=== PATIENT | female | born 1970 | race American Indian/Alaskan Native ===

== ENCOUNTER 2020-07-20 14:21 | Observation (INO) | payer MEDICAID, OTHER ==
--- NOTE | 2020-07-20 16:26 | Event Note ---
ED Screening Note Date of service: 07/20/20 Time: 16:22 ED Screening Note: 50-year-old -[place] female presents to the emergency room complaining of nausea and vomiting x2 days. She also reports that she ran out of her diabetic medication. Her blood sugar in triage is 423. This initial assessment/diagnostic orders/clinical plan/treatment(s) is/are subject to change based on patients health status, clinical progression and re- assessment by fellow clinical providers in the ED. Further treatment and workup at subsequent clinical providers discretion. Patient/guardian urged not to elope from the ED as their condition may be serious if not clinically assessed and managed. Initial orders include:
[2020-07-20 17:06] LABS: Basophils % (Auto) 0.4 % (0.0-1.8); Eosinophils % (Auto) 0.1 % (0.0-4.3); Hematocrit 46.4 % (30.3-42.9); Lymphocytes # (Auto) 1.7 K/mm3 (1.2-5.4); Lymphocytes % (Auto) 13.9 % (13.4-35.0); Mean Corpuscular HGB Conc 32 % (30-34); Mean Corpuscular Volume 82 fl (79-97); Monocytes # (Auto) 0.5 K/mm3 (0.0-0.8); Monocytes % (Auto) 4.1 % (0.0-7.3); Platelet Count 334 K/mm3 (140-440); Red Blood Count 5.64 M/mm3 (3.65-5.03)
[2020-07-20 17:09] LABS: Alanine Aminotransferase 14 units/L (7-56); Albumin 4.9 g/dL (3.9-5); BUN/Creatinine Ratio 17; Blood Urea Nitrogen 15 mg/dL (7-17); Calcium 10.8 mg/dL (8.4-10.2); Hemolysis Index 12
[2020-07-20 18:05] LABS: Bilirubin,Urine NEG (Negative); Blood,Urine MOD (Negative); Color,Urine Straw (Yellow); Protein,Urine <15 mg/dL mg/dL (Negative); Urobilinogen,Urine < 2.0 mg/dL (<2.0)
[2020-07-20] MEDS ORDERED: FAMOTIDINE 20 MG/2 ML INJ IV ONE (23:27)
[2020-07-20] MEDS ORDERED: SODIUM CHLORIDE 0.9% 1000 ML 2,000 ML IV ONE (23:27)
[2020-07-20] MEDS ORDERED: ONDANSETRON 4 MG/2 ML INJ IV ONE (23:27)
[2020-07-20] MEDS ORDERED: INSULIN REGULAR, HUMAN 100 UNIT/ML 3ML VIAL IV ONE (23:28)
--- NOTE | 2020-07-20 23:31 | Emergency Department Report ---
ED General Adult HPI - General Chief complaint: Nausea/Vomiting/Diarrhea Stated complaint: STOMACH PAIN PUI?: No Time Seen by Provider: 07/20/20 23:19 Source: patient, RN notes reviewed Mode of arrival: Ambulatory Limitations: No Limitations - History of Present Illness Initial comments: The patient was evaluated in the emergency department for symptoms described in the history of present illness. He/she was evaluated in the context of the global COVID-19 pandemic, which necessitated consideration that the patient might be at risk for infection with the virus that causes COVID-19. Institutional protocols and algorithms that pertain to the evaluation of patients at risk for COVID-19 are in a state of rapid change based on information released by regulatory bodies including the CDC and federal and state organizations. These policies and algorithms were followed during the patient's care in the emergency department. Please note that these policies, procedures and recommendations changed on a rapid basis. During the history and physical examination, I am chaperoned by nurse Bonilla Lazar Patient is a 50-year-old female. She is not known to myself previously. She arrived in the [facility] 3 days ago, from [place]. She has a history of diabetes, hypertension, and endometriosis, status post partial hysterectomy last year. She presents to the ER with a complaint of lower abdominal pain and cramping, distention, nausea and vomiting, not defecating for 24 hours, hyperglycemia, and running out of her medication, Metformin, 1000 mg twice daily. She thinks her last hemoglobin A1c was approximately 6. She does not have a gastroparesis diagnosis that she is aware of. She denies headache, neck pain, chest pain, shortness of breath, dysuria, body aches, and she denies loss of taste, loss of smell, cough and shortness of breath. She states that she is very thirsty, and "drinking a lot of soda." She also reports that she needs her Metformin medication refilled. -: Gradual, days(s) Location: abdomen Radiation: non-radiation Quality: other (Cramping) Consistency: intermittent Improves with: none Worsens with: none - Related Data Allergies Allergy/AdvReac Type Severity Reaction Status Date / Time No Known Allergies Allergy Unverified 07/20/20 16:23 ED Review of Systems ROS: Stated complaint: STOMACH PAIN Other details as noted in HPI Constitutional: denies: fever, malaise Eyes: denies: eye discharge ENT: denies: epistaxis Respiratory: denies: cough Cardiovascular: denies: chest pain Gastrointestinal: abdominal pain, nausea, vomiting. denies: hematemesis, melena, hematochezia Genitourinary: denies: dysuria Neurological: denies: weakness Hematological/Lymphatic: denies: easy bleeding ED Past Medical Hx - Past Medical History Previous Medical History?: Yes Hx Hypertension: Yes Hx Diabetes: Yes Hx of Cancer: Yes (endometriosis) - Surgical History Past Surgical History?: Yes - Social History Smoking Status: Current Every Day Smoker Substance Use Type: Alcohol ED Physical Exam - General Limitations: No Limitations General appearance: alert, in no apparent distress - Head Head exam: Present: atraumatic, normocephalic - Eye Eye exam: Present: normal appearance, EOMI. Absent: nystagmus - ENT ENT exam: Present: normal exam, normal orophraynx, mucous membranes moist, normal external ear exam - Neck Neck exam: Present: normal inspection, full ROM. Absent: tenderness, meningismus - Respiratory Respiratory exam: Present: normal lung sounds bilaterally. Absent: respiratory distress, wheezes, rales, rhonchi, stridor, decreased breath sounds - Cardiovascular Cardiovascular Exam: Present: regular rate, normal rhythm, normal heart sounds. Absent: bradycardia, tachycardia, irregular rhythm, systolic murmur, diastolic murmur, rubs, gallop - GI/Abdominal GI/Abdominal exam: Present: soft, tenderness (There is minimal bilateral lower quadrant abdominal tenderness, without rebound, guarding or peritoneal signs), normal bowel sounds. Absent: distended, guarding, rebound, rigid, pulsatile mass - Extremities Exam Extremities exam: Present: normal inspection, full ROM, other (2+ pulses noted in the bilateral upper and lower extremities. There is no palpable cord. negative Homans sign. Muscular compartments are soft. The pelvis is stable.). Absent: pedal edema, calf tenderness - Back Exam Back exam: Present: normal inspection. Absent: tenderness, CVA tenderness (R), CVA tenderness (L), paraspinal tenderness, vertebral tenderness - Neurological Exam Neurological exam: Present: alert, oriented X3, normal gait, other (No facial droop. Tongue midline. Extraocular movements intact bilaterally. Facial sensation intact to light touch in V1, V2, V3 distribution bilaterally. 5 and a 5 strength in 4 extremities. Sensation intact to light touch in 4 ex tremities.). Absent: motor sensory deficit - Psychiatric Psychiatric exam: Present: normal affect, normal mood - Skin Skin exam: Present: warm, dry, intact, normal color. Absent: rash ED Course Vital Signs 07/20/20 15:22 Temperature 98.4 F Pulse Rate 107 H Respiratory 16 Rate Blood Pressure 152/95 O2 Sat by Pulse 97 Oximetry - Reevaluation(s) Reevaluation #1: 07/20/20 23:35 Differential diagnosis, including but not limited to: Colitis, diverticulitis, obstruction, gastroparesis Assessment and plan: 50-year-old female, who was afebrile, with reassuring vital signs and has resolved tachycardia, with hyperglycemia, lower abdominal pain, distention, no bowel movement for over 24 hours, history of partial hysterectomy, and report of nausea and vomiting. Place patient on monitor and storage bin tender. Start IV fluids, pain medication, nausea medication, insulin therapy. Obtain EKG, CT scan of the abdomen pelvis. Discussed this plan of care with the patient, who verbalized understanding, and who is amenable to this plan of care. Reassess after initial data points. Repeat basic metabolic panel after initial IV fluid resuscitation to assess for changes of metabolic derangements. Pyuria is appreciated. Patient does not endorse any irritative or obstructive urinary symptoms. She may follow-up with an outpatient primary care doctor for this. 07/20/20 23:37 07/21/20 00:58 CT scan suggest small bowel obstruction. We will withhold Kayexalate as this medication may cause colonic perforation and concretions. Patient given IV fluids and insulin, which may assist with mild hyperkalemia. N.p.o. status is ordered. No active vomiting at this time. Will discuss with general surgery. We anticipate admission to the medical service. We will update the patient on her plan of care Reevaluation #2: 07/21/20 01:08 Discussed with general surgery on-call, Dr. Pina. Her group will follow in consultation. I discussed the patient's diagnosis with the patient. She is amenable to admission/hospitalization. N.p.o. status, nasogastric tube ordered/recommended by general surgery. Appropriate medications ordered. Hospital physician, Dr. Yordan Oropeza to admit - Consultations Consultation #1: 07/21/20 01:07 I discussed the patient's history, physical, pertinent laboratory studies and imaging findings with general surgery on-call, Dr. Pina. She will follow in consultation. Recommends nasogastric tube, supportive care, nothing by mouth at this time. ED Medical Decision Making - Lab Data Result diagrams: 07/20/20 16:33 07/20/20 16:33 Vital Signs 07/20/20 15:22 Temperature 98.4 F Pulse Rate 107 H Respiratory 16 Rate Blood Pressure 152/95 O2 Sat by Pulse 97 Oximetry Lab Results 07/20/20 07/20/20 07/20/20 Range/Units 15:24 16:33 16:33 WBC 12.3 H (4.5-11.0) K/mm3 RBC 5.64 H (3.65-5.03) M/mm3 Hgb 15.0 H (10.1-14.3) gm/dl Hct 46.4 H (30.3-42.9) % MCV 82 (79-97) fl MCH 27 L (28-32) pg MCHC 32 (30-34) % RDW 14.0 (13.2-15.2) % Plt Count 334 (140-440) K/mm3 Lymph % (Auto) 13.9 (13.4-35.0) % Nelson % (Auto) 4.1 (0.0-7.3) % Eos % (Auto) 0.1 (0.0-4.3) % Baso % (Auto) 0.4 (0.0-1.8) % Lymph # (Auto) 1.7 (1.2-5.4) K/mm3 Nelson # (Auto) 0.5 (0.0-0.8) K/mm3 Eos # (Auto) 0.0 (0.0-0.4) K/mm3 Baso # (Auto) 0.0 (0.0-0.1) K/mm3 Seg Neutrophils % 81.5 H (40.0-70.0) % Seg Neutrophils # 10.0 H (1.8-7.7) K/mm3 VBG pH (7.320-7.420) Sodium 138 (137-145) mmol/L Potassium 5.7 H (3.6-5.0) mmol/L Chloride 97.4 L (98-107) mmol/L Carbon Dioxide 23 (22-30) mmol/L Anion Gap 23 mmol/L BUN 15 (7-17) mg/dL Creatinine 0.9 (0.6-1.2) mg/dL Estimated GFR > 60 ml/min BUN/Creatinine Ratio 17 % Glucose 439 H (65-100) mg/dL POC Glucose 423 H (70-105) mg/dL Calcium 10.8 H (8.4-10.2) mg/dL Total Bilirubin 0.60 (0.1-1.2) mg/dL AST 11 (5-40) units/L ALT 14 (7-56) units/L Alkaline Phosphatase 129 (35-129) units/L Total Protein 8.5 H (6.3-8.2) g/dL Albumin 4.9 (3.9-5) g/dL Albumin/Globulin Ratio 1.4 % Lipase 27 (13-60) units/L Urine Color (Yellow) Urine Turbidity (Clear) Urine pH (5.0-7.0) Ur Specific [place] (1.003-1.030) Urine Protein (Negative) mg/dL Urine Glucose (UA) (Negative) mg/dL Urine Ketones (Negative) mg/dL Urine Blood (Negative) Urine Nitrite (Negative) Urine Bilirubin (Negative) Urine Urobilinogen (<2.0) mg/dL Ur Leukocyte Esterase (Negative) Urine WBC (Auto) (0.0-6.0) /HPF Urine RBC (Auto) (0.0-6.0) /HPF U Epithel Cells (Auto) (0-13.0) /HPF 07/20/20 07/20/20 07/20/20 Range/Units 16:33 17:25 21:54 WBC (4.5-11.0) K/mm3 RBC (3.65-5.03) M/mm3 Hgb (10.1-14.3) gm/dl Hct (30.3-42.9) % MCV (79-97) fl MCH (28-32) pg MCHC (30-34) % RDW (13.2-15.2) % Plt Count (140-440) K/mm3 Lymph % (Auto) (13.4-35.0) % Nelson % (Auto) (0.0-7.3) % Eos % (Auto) (0.0-4.3) % Baso % (Auto) (0.0-1.8) % Lymph # (Auto) (1.2-5.4) K/mm3 Nelson # (Auto) (0.0-0.8) K/mm3 Eos # (Auto) (0.0-0.4) K/mm3 Baso # (Auto) (0.0-0.1) K/mm3 Seg Neutrophils % (40.0-70.0) % Seg Neutrophils # (1.8-7.7) K/mm3 VBG pH 7.369 (7.320-7.420) Sodium (137-145) mmol/L Potassium (3.6-5.0) mmol/L Chloride (98-107) mmol/L Carbon Dioxide (22-30) mmol/L Anion Gap mmol/L BUN (7-17) mg/dL Creatinine (0.6-1.2) mg/dL Estimated GFR ml/min BUN/Creatinine Ratio % Glucose (65-100) mg/dL POC Glucose 378 H (70-105) mg/dL Calcium (8.4-10.2) mg/dL Total Bilirubin (0.1-1.2) mg/dL AST (5-40) units/L ALT (7-56) units/L Alkaline Phosphatase (35-129) units/L Total Protein (6.3-8.2) g/dL Albumin (3.9-5) g/dL Albumin/Globulin Ratio % Lipase (13-60) units/L Urine Color Straw (Yellow) Urine Turbidity Clear (Clear) Urine pH 5.0 (5.0-7.0) Ur Specific [place] 1.030 (1.003-1.030) Urine Protein <15 mg/dl (Negative) mg/dL Urine Glucose (UA) >=500 (Negative) mg/dL Urine Ketones 20 (Negative) mg/dL Urine Blood Mod (Negative) Urine Nitrite Neg (Negative) Urine Bilirubin Neg (Negative) Urine Urobilinogen < 2.0 (<2.0) mg/dL Ur Leukocyte Esterase Neg (Negative) Urine WBC (Auto) 7.0 H (0.0-6.0) /HPF Urine RBC (Auto) 4.0 (0.0-6.0) /HPF U Epithel Cells (Auto) 1.0 (0-13.0) /HPF - EKG Data -: EKG Interpreted by Ri EKG shows normal: sinus rhythm Rate: normal - EKG Data When compared to previous EKG there are: previous EKG unavailable 07/21/20 00:51 Sinus rhythm, 97 bpm, normal axis, QTC 442 ms, left ventricular hypertrophy, p oor R wave progression, and atrial enlargement. The EKG is abnormal. The EKG is not a STEMI. - Radiology Data Radiology results: pending, report reviewed, image reviewed CT ABDOMEN AND PELVIS WITH IV CONTRAST INDICATION: Lower abdominal pain nausea and vomiting TECHNIQUE: Following the administration of intravenous contrast, multiple axial CT images of the abdomen and pelvis were acquired. Sagittal and coronal reformats were obtained. All CT performed at this facility utilize dose reduction techniques including automated exposure control, iterative r econstruction and weight based dosing when appropriate to reduce patient radiation dose to as low as reasonably achievable. COMPARISON: None FINDINGS: Limited imaging of the bilateral lung bases demonstrates no acute abnormality. ABDOMEN: The liver, gallbladder, spleen, stomach, pancreas, bilateral adrenal glands and bilateral kidneys show no evidence of acute abnormality. There are multiple loops of dilated mid and distal small bowel with a transition point in the mid abdomen. No pneumatosis or free air is visualized. A normal appendix is unable to be identified. PELVIS: The urinary bladder appears normal. No free pelvic fluid is seen. There is a circumscribed 1.8 x 2.3 cm fluid collection within the right pelvis which may represent an adnexal cyst. BONES AND SOFT TISSUES: No acute bony abnormality is visualized. Soft tissue structures appear grossly normal. IMPRESSION: 1. Several loops of dilated mid and distal small bowel with the terminal ileum decompressed. Findings are most compatible with small bowel obstruction. The cause for the obstruction is not clearly visualized on today's study. 2. Please note that a normal appendix is not identified on today's study. 3. Small circumscribed fluid collection in the right pelvis that may represent an adnexal cyst. Signer Name: Mary Dobbins MD Signed: 07/20/2020 11:52 PM Workstation Name: [id number] Critical care attestation.: If time is entered above; I have spent that time in minutes in the direct care of this critically ill patient, excluding procedure time. ED Disposition Clinical Impression: Hyperglycemia, Lower abdominal pain, History of nausea and vomiting, Dehydration, Pyuria, Hyperkalemia, Small bowel obstruction Disposition: DC-09 OP ADMIT IP TO THIS HOSP Is pt being admited?: Yes Does the pt Need Aspirin: No Condition: Good Referrals: JAQUAN LAKHANI [Other] - 3-5 Days
--- NOTE | 2020-07-21 00:56 | Cat Scan Report ---
CT ABDOMEN AND PELVIS WITH IV CONTRAST INDICATION: Lower abdominal pain nausea and vomiting TECHNIQUE: Following the administration of intravenous contrast, multiple axial CT images of the abdo men and pelvis were acquired. Sagittal and coronal reformats were obtained. All CT performed at this facility utilize dose reduction techniques including automated exposure control, iterative reconstru ction and weight based dosing when appropriate to reduce patient radiation dose to as low as reasonab ly achievable. COMPARISON: None FINDINGS: Limited imaging of the bilateral lung bases demonstrates no acute abnormality. ABDOMEN: The liver, gallbladder, spleen, stomach, pancreas, bilateral adrenal glands and bilateral kidneys kim w no evidence of acute abnormality. There are multiple loops of dilated mid and distal small bowel with a transition point in the mid abd omen. No pneumatosis or free air is visualized. A normal appendix is unable to be identified. PELVIS: The urinary bladder appears normal. No free pelvic fluid is seen. There is a circumscribed 1.8 x 2.3 cm fluid collection within the right pelvis which may represent an adnexal cyst. BONES AND SOFT TISSUES: No acute bony abnormality is visualized. Soft tissue structures appear grossl y normal. IMPRESSION: 1. Several loops of dilated mid and distal small bowel with the terminal ileum decompressed. Findings are most compatible with small bowel obstruction. The cause for the obstruction is not clearly visua lized on today's study. 2. Please note that a normal appendix is not identified on today's study. 3. Small circumscribed fluid collection in the right pelvis that may represent an adnexal cyst. Signer Name: Mary Dobbins MD Signed: 07/21/2020 12:52 AM Workstation Name: [id number]
[2020-07-21] MEDS ORDERED: INSULIN REGULAR, HUMAN 100 UNITS/1 ML ONE (01:00)
[2020-07-21] MEDS ORDERED: MORPHINE 4 MG/1 ML INJ IV ONE (01:05)
[2020-07-21] MEDS ORDERED: LIDOCAINE VISCOUS 2% 15 ML ORAL LIQD PO ONE (01:06)
[2020-07-21] MEDS ORDERED: ONDANSETRON 4 MG/2 ML INJ IV PRN (01:40)
[2020-07-21] MEDS ORDERED: ACETAMINOPHEN 325 MG TAB PO PRN (01:40)
[2020-07-21] MEDS ORDERED: DEXTROSE 50% IN WATER (25GM) 50 ML SYRINGE IV PRN (01:40)
[2020-07-21] MEDS ORDERED: SODIUM CHLORIDE 0.9% 1000 ML 1,000 ML IV SCH (01:45)
--- NOTE | 2020-07-21 02:05 | History and Physical Report ---
History of Present Illness Date of examination: 07/21/20 Date of admission: 07/20/2020 Chief complaint: Abdominal pain Nausea and Vomiting History of present illness: 50-year-old female with known history of hypertension, diabetes mellitus currently visiting [place] from [place] presenting to the emergency room today complaining of abdominal pain, nausea and vomiting which has been ongoing for the past few days. Abdominal pain is said to be crampy, no known relieving or exacerbating factor. Pain is also said to be radiating towards the back. She denies any diarrhea, no constipation, no bright red blood per rectum, no coffee-ground emesis. Patient denies any fever or chills, no chest pain or shortness of breath, no headache or dizziness, no hematuria or dysuria. Patient has been feeling thirsty and been drinking lots of soda. She also indicates that her blood sugar has been elevated and she been running out of Metformin. Work-up in the emergency room today including CT scan of the abdomen and pelvis is suggestive of small bowel obstruction. Labs were significant for hyperglycemia, hyperkalemia and dehydration. General surgeon Dr. Pina has been consulted by the ER physician for evaluation. Past History Past Medical History: diabetes, hypertension, other (History of endometriosis) Past Surgical History: hysterectomy Social history: smoking (Current daily smoker), alcohol abuse Family history: no significant family history Medications and Allergies Allergies Allergy/AdvReac Type Severity Reaction Status Date / Time No Known Allergies Allergy Unverified 07/20/20 16:23 Active Meds: Active Medications Acetaminophen (Acetaminophen 325 Mg Tab) 650 mg PO Q4H PRN PRN Reason: Pain MILD(1-3)/Fever >100.5/SCHULTZ Dextrose (Dextrose 50% In Water (25gm) 50 Ml Syringe) 50 ml IV Q30MIN PRN; Protocol PRN Reason: Hypoglycemia Sodium Chloride (Nacl 0.9% 1000 Ml) 1,000 mls @ 125 mls/hr IV DIRECT MARICLE Insulin Human Lispro (Insulin Lispro 100 Unit/Ml Vial 3 Ml) 0 unit SUB-Q ACHS MARICEL; Protocol Morphine Sulfate (Morphine 2 Mg/1 Ml Inj) 2 mg IV Q4H PRN PRN Reason: Pain, Moderate (4-6) Ondansetron HCl (Ondansetron 4 Mg/2 Ml Inj) 4 mg IV Q8H PRN PRN Reason: Nausea And Vomiting Sodium Chloride (Sodium Chloride 0.9% 10 Ml Flush Syringe) 10 ml IV BID MARICEL Sodium Chloride (Sodium Chloride 0.9% 10 Ml Flush Syringe) 10 ml IV PRN PRN PRN Reason: LINE FLUSH Review of Systems Constitutional: no fever, no chills Ears, nose, mouth and throat: no nasal congestion, no sore throat Cardiovascular: no chest pain, no palpitations Respiratory: no cough, no shortness of breath Gastrointestinal: abdominal pain, nausea, vomiting, no diarrhea, no constipation, no coffee ground emesis, no BRBPR, no melena Genitourinary Female: no flank pain, no dysuria, no hematuria Musculoskeletal: no neck pain, no low back pain Integumentary: no rash, no pruritis Neurological: no headaches, no confusion Psychiatric: no anxiety, no depression Exam - Constitutional Vitals: Temp Pulse Resp BP Pulse Ox 98.4 F 107 H 16 152/95 97 07/20/20 15:22 07/20/20 15:22 07/20/20 15:22 07/20/20 15:22 07/20/20 15:22 General appearance: Present: no acute distress, well-nourished - EENT Eyes: Present: PERRL, EOM intact. Absent: scleral icterus ENT: hearing intact, clear oral mucosa, dentition normal - Neck Neck: Present: supple, normal ROM - Respiratory Respiratory effort: normal Respiratory: bilateral: CTA - Cardiovascular Rhythm: regular Heart Sounds: Present: S1 & S2. Absent: gallop, systolic murmur, diastolic murmur, rub - Extremities Extremities: no ischemia, pulses intact, pulses symmetrical, No edema, Full ROM Peripheral Pulses: within normal limits - Abdominal General gastrointestinal: Present: soft, tender (Lower quadrants bilaterally), non-distended, normal bowel sounds, other (Old scar of surgery in midline.). Absent: mass - Integumentary Integumentary: Present: clear, warm, dry. Absent: rash - Musculoskeletal Musculoskeletal: strength equal bilaterally - Psychiatric Psychiatric: appropriate mood/affect, intact judgment & insight, memory intact, cooperative - Neurologic Neurologic: CNII-XII intact, no focal deficits, moves all extremities Results - Labs CBC & Chem 7: 07/20/20 16:33 07/20/20 16:33 Labs: Abnormal lab results 07/20/20 07/20/20 07/20/20 Range/Units 15:24 16:33 16:33 WBC 12.3 H (4.5-11.0) K/mm3 RBC 5.64 H (3.65-5.03) M/mm3 Hgb 15.0 H (10.1-14.3) gm/dl Hct 46.4 H (30.3-42.9) % MCH 27 L (28-32) pg Seg Neutrophils % 81.5 H (40.0-70.0) % Seg Neutrophils # 10.0 H (1.8-7.7) K/mm3 Potassium 5.7 H (3.6-5.0) mmol/L Chloride 97.4 L (98-107) mmol/L Glucose 439 H (65-100) mg/dL POC Glucose 423 H (70-105) mg/dL Calcium 10.8 H (8.4-10.2) mg/dL Total Protein 8.5 H (6.3-8.2) g/dL Urine WBC (Auto) (0.0-6.0) /HPF 07/20/20 07/20/20 07/21/20 Range/Units 17:25 21:54 01:27 WBC (4.5-11.0) K/mm3 RBC (3.65-5.03) M/mm3 Hgb (10.1-14.3) gm/dl Hct (30.3-42.9) % MCH (28-32) pg Seg Neutrophils % (40.0-70.0) % Seg Neutrophils # (1.8-7.7) K/mm3 Potassium (3.6-5.0) mmol/L Chloride (98-107) mmol/L Glucose (65-100) mg/dL POC Glucose 378 H 291 H (70-105) mg/dL Calcium (8.4-10.2) mg/dL Total Protein (6.3-8.2) g/dL Urine WBC (Auto) 7.0 H (0.0-6.0) /HPF Assessment and Plan - Patient Problems (1) Small bowel obstruction Current Visit: Yes Status: Acute Plan to address problem: Patient has been placed n.p.o. NG tube has been recommended. Consult has been placed to general surgeon Dr. Yovani. (2) Lower abdominal pain Current Visit: Yes Status: Acute Plan to address problem: Possibly secondary to the small bowel obstruction. We will continue with IV analgesic medication as needed. (3) Dehydration Current Visit: Yes Status: Acute Plan to address problem: Possibly from the nausea and vomiting. Will place patient on IV fluid and wilberto tor chemistry. (4) Hyperglycemia Current Visit: Yes Status: Acute Plan to address problem: We will monitor Accu-Cheks closely. (5) Hyperkalemia Current Visit: Yes Status: Acute Plan to address problem: Patient has had insulin and IV fluid. Will monitor potassium level. (6) DVT prophylaxis Current Visit: Yes Status: Acute Plan to address problem: Patient placed on sequential compression device. (7) Full code status Current Visit: Yes Status: Acute
[2020-07-21 04:23] LABS: Blood Urea Nitrogen 16 mg/dL (7-17); Calcium 9.5 mg/dL (8.4-10.2); Hemolysis Index 45
[2020-07-21 04:40] LABS: BUN/Creatinine Ratio 23
[2020-07-21] MEDS: MORPHINE 2 MG/1 ML INJ IV PRN ×2 (05:33→11:17)
[2020-07-21] MEDS: INSULIN LISPRO 100 UNIT/ML VIAL 3 mL SUB-Q SCH ×2 (07:22→11:22)
--- NOTE | 2020-07-21 09:59 | Consultation ---
History of Present Illness Consult date: 07/21/20 Reason for consult: abdominal pain - History of present illness History of present illness: 50 year old female presented to ED with about a 4 day hx of worsening abdominal pain with n&v. She says the pain had gotten progressively worse and she was not able to make it back home to [place] where she lives. She had a CT scan done that shows moderately dilated small bowel loops c/w SBO although no clear transition point or etiology could be appreciated. She says currently she feels better with nausea resolved, no vomiting in over 24 hours and says that she has been passing flatus with the last she remembered earlier today. Past History Past Medical History: diabetes, hypertension, other (History of endometriosis) Past Surgical History: hysterectomy Social history: smoking (Current daily smoker), alcohol abuse Family history: no significant family history Medications and Allergies Allergies Allergy/AdvReac Type Severity Reaction Status Date / Time No Known Allergies Allergy Unverified 07/20/20 16:23 Home Medications Medication Instructions Recorded Confirmed Last Taken Type amLODIPine 10 mg PO QDAY 07/21/20 07/21/20 Unknown History metFORMIN 1,000 mg PO BID 07/21/20 07/21/20 Unknown History Active Meds: Active Medications Acetaminophen (Acetaminophen 325 Mg Tab) 650 mg PO Q4H PRN PRN Reason: Pain MILD(1-3)/Fever >100.5/SCHULTZ Dextrose (Dextrose 50% In Water (25gm) 50 Ml Syringe) 0 ml IV Q30MIN PRN; Protocol PRN Reason: Hypoglycemia Sodium Chloride (Nacl 0.9% 1000 Ml) 1,000 mls @ 125 mls/hr IV DIRECT MARICEL Last Admin: 07/21/20 05:12 Dose: 125 mls/hr Documented by: Insulin Human Lispro (Insulin Lispro 100 Unit/Ml Vial 3 Ml) 0 unit SUB-Q ACHS MARICEL; Protocol Ketorolac Tromethamine (Ketorolac 30 Mg/1 Ml Inj) 30 mg IV Q8HR MARICEL Stop: 07/26/20 09:59 Morphine Sulfate (Morphine 2 Mg/1 Ml Inj) 2 mg IV Q4H PRN PRN Reason: Pain, Moderate (4-6) Last Admin: 07/21/20 05:33 Dose: 2 mg Documented by: Ondansetron HCl (Ondansetron 4 Mg/2 Ml Inj) 4 mg IV Q8H PRN PRN Reason: Nausea And Vomiting Sodium Chloride (Sodium Chloride 0.9% 10 Ml Flush Syringe) 10 ml IV BID AMRICEL Sodium Chloride (Sodium Chloride 0.9% 10 Ml Flush Syringe) 10 ml IV PRN PRN PRN Reason: LINE FLUSH Review of Systems - Constitutional no weight loss, no fever, no chills - Cardiovascular no chest pain - Respiratory no cough, no shortness of breath - Gastrointestinal abdominal pain Exam Vital Signs Temp Pulse Resp BP Pulse Ox 98.4 F 107 H 16 152/95 97 07/20/20 15:22 07/20/20 15:22 07/20/20 15:22 07/20/20 15:22 07/20/20 15:22 - General physical appearance Positive: well developed, well nourished, no distress, moderate pain - Respiratory Positive: normal expansion, normal respiratory effort - Extremities Extremities: no ischemia - Abdomen Abdomen: Present: soft, other (tender to deep palpation). Absent: distended, guarding, rigid - Neurologic Neurologic: alert and oriented to time, place and person, motor strength and sensation are grossly intact Results - Labs 07/20/20 16:33 07/21/20 02:41 Abnormal lab results 07/20/20 07/20/20 07/20/20 Range/Units 15:24 16:33 16:33 WBC 12.3 H (4.5-11.0) K/mm3 RBC 5.64 H (3.65-5.03) M/mm3 Hgb 15.0 H (10.1-14.3) gm/dl Hct 46.4 H (30.3-42.9) % MCH 27 L (28-32) pg Seg Neutrophils % 81.5 H (40.0-70.0) % Seg Neutrophils # 10.0 H (1.8-7.7) K/mm3 Potassium 5.7 H (3.6-5.0) mmol/L Chloride 97.4 L (98-107) mmol/L Glucose 439 H (65-100) mg/dL POC Glucose 423 H (70-105) mg/dL Hemoglobin A1c (4-6) % Calcium 10.8 H (8.4-10.2) mg/dL Total Protein 8.5 H (6.3-8.2) g/dL Urine WBC (Auto) (0.0-6.0) /HPF 07/20/20 07/20/20 07/21/20 Range/Units 17:25 21:54 01:27 WBC (4.5-11.0) K/mm3 RBC (3.65-5.03) M/mm3 Hgb (10.1-14.3) gm/dl Hct (30.3-42.9) % MCH (28-32) pg Seg Neutrophils % (40.0-70.0) % Seg Neutrophils # (1.8-7.7) K/mm3 Potassium (3.6-5.0) mmol/L Chloride (98-107) mmol/L Glucose (65-100) mg/dL POC Glucose 378 H 291 H (70-105) mg/dL Hemoglobin A1c (4-6) % Calcium (8.4-10.2) mg/dL Total Protein (6.3-8.2) g/dL Urine WBC (Auto) 7.0 H (0.0-6.0) /HPF 07/21/20 07/21/20 07/21/20 Range/Units 02:41 02:41 06:52 WBC (4.5-11.0) K/mm3 RBC (3.65-5.03) M/mm3 Hgb (10.1-14.3) gm/dl Hct (30.3-42.9) % MCH (28-32) pg Seg Neutrophils % (40.0-70.0) % Seg Neutrophils # (1.8-7.7) K/mm3 Potassium (3.6-5.0) mmol/L Chloride (98-107) mmol/L Glucose 218 H (65-100) mg/dL POC Glucose 203 H (70-105) mg/dL Hemoglobin A1c 10.4 H (4-6) % Calcium (8.4-10.2) mg/dL Total Protein (6.3-8.2) g/dL Urine WBC (Auto) (0.0-6.0) /HPF Diabetes panel 07/20/20 07/21/20 07/21/20 Range/Units 16:33 02:41 02:41 Sodium 138 142 (137-145) mmol/L Potassium 5.7 H 4.1 D (3.6-5.0) mmol/L Chloride 97.4 L 104.8 (98-107) mmol/L Carbon Dioxide 23 24 (22-30) mmol/L BUN 15 16 (7-17) mg/dL Creatinine 0.9 0.7 (0.6-1.2) mg/dL Glucose 439 H 218 H (65-100) mg/dL Hemoglobin A1c 10.4 H (4-6) % Calcium 10.8 H 9.5 (8.4-10.2) mg/dL AST 11 (5-40) units/L ALT 14 (7-56) units/L Alkaline Phosphatase 129 (35-129) units/L Total Protein 8.5 H (6.3-8.2) g/dL Albumin 4.9 (3.9-5) g/dL Calcium panel 07/20/20 07/21/20 Range/Units 16:33 02:41 Calcium 10.8 H 9.5 (8.4-10.2) mg/dL Albumin 4.9 (3.9-5) g/dL Pituitary panel 07/20/20 07/21/20 Range/Units 16:33 02:41 Sodium 138 142 (137-145) mmol/L Potassium 5.7 H 4.1 D (3.6-5.0) mmol/L Chloride 97.4 L 104.8 (98-107) mmol/L Carbon Dioxide 23 24 (22-30) mmol/L BUN 15 16 (7-17) mg/dL Creatinine 0.9 0.7 (0.6-1.2) mg/dL Glucose 439 H 218 H (65-100) mg/dL Calcium 10.8 H 9.5 (8.4-10.2) mg/dL Adrenal panel 07/20/20 07/21/20 Range/Units 16:33 02:41 Sodium 138 142 (137-145) mmol/L Potassium 5.7 H 4.1 D (3.6-5.0) mmol/L Chloride 97.4 L 104.8 (98-107) mmol/L Carbon Dioxide 23 24 (22-30) mmol/L BUN 15 16 (7-17) mg/dL Creatinine 0.9 0.7 (0.6-1.2) mg/dL Glucose 439 H 218 H (65-100) mg/dL Calcium 10.8 H 9.5 (8.4-10.2) mg/dL Total Bilirubin 0.60 (0.1-1.2) mg/dL AST 11 (5-40) units/L ALT 14 (7-56) units/L Alkaline Phosphatase 129 (35-129) units/L Total Protein 8.5 H (6.3-8.2) g/dL Albumin 4.9 (3.9-5) g/dL - Imaging CT scan - abdomen: report reviewed, image reviewed CT scan - pelvis: report reviewed, image reviewed Assessment and Plan 50 year old female with uncomplicated small bowel obstruction that is showing signs of clinical improvement. (passing flatus) Not showing signs of complications from obstruction such as perforation or ischemia. Pt lives in [place] and says that her who drives a truck for a living is waiting for her and she wants to leave as soon as possible. I explained to her at length that if she leaves before showing clear improvement/resolution of SBO she would need to leave AMA. She says she understood. I will get an xray at 4pm and continue to keep her NPO except ice chips. Will add toradol for pain control. Also explained to her if she vomits she will need an NGT for decompression.
[2020-07-21] MEDS ORDERED: KETOROLAC 30 MG/1 ML INJ IV SCH (10:00)
[2020-07-21 11:33] VITALS: BP 139/71
--- NOTE | 2020-07-21 16:36 | Discharge Summary ---
Providers - Providers Date of Admission: 07/21/20 01:08 Date of discharge: 07/21/20 Attending physician: PAUL JOHNSON 07/21/20 00:58 Consult to Physician [CONS] Stat Comment: Consulting Provider: QUIN LACKEY Physician Instructions: Reason For Exam: sbo 07/21/20 01:43 Consult to Dietitian/Nutrition [CONS] Routine Physician Instructions: Reason For Exam: Reason for Consult: Diet education Hospitalization Condition: Good Disposition: DC-[id number] LEFT AGAINST MED ADVICE Exam - Constitutional Vitals: Temp Pulse Resp BP Pulse Ox 98.1 F 89 20 139/71 98 07/21/20 11:00 07/21/20 11:00 07/21/20 11:00 07/21/20 11:00 07/21/20 11:00 Plan Follow up with: JAQUAN LAKHANI [Other] - 3-5 Days Forms: AMA Form
== END 2020-07-21 12:00 | disposition left against medical advice (07) ==
LOC: ED 14:21 → 3B-SURG 07-21 01:08
PROVIDERS: ADMIT Internal Medicine Geriatric Medicine; ATTEND Internal Medicine
DX: K56.609 Unspecified intestinal obstruction, unspecified as to partial versus complete obstruction (principal); I10 Essential (primary) hypertension; E11.65 Type 2 diabetes mellitus with hyperglycemia; E86.0 Dehydration; E87.5 Hyperkalemia; F17.210 Nicotine dependence, cigarettes, uncomplicated; N80.9 Endometriosis, unspecified; R82.81 Pyuria; Z87.898 Personal history of other specified conditions; Z90.710 Acquired absence of both cervix and uterus; Z79.4 Long term (current) use of insulin; Z98.890 Other specified postprocedural states
CPT/HCPCS: 36415; 74177; 80048; 80053; 81001; 82550; 82805; 82962; 83036; 83690; 83735; 85025; 93005; 96361; 96372; 96374; 96375; 96376; 99285; G0378; J1885; J2270; J2405; J7030; Q9967; J1815